=== PATIENT | male | born 1985 | race Caucasian/White ===

== ENCOUNTER 2017-02-02 15:10 | Emergency (ER) | payer MEDICAID ==
[2017-02-02 15:22] VITALS: BP 114/78; PULSE 100; RESP 16; TEMP 98.4; O2SAT 92
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
== END 2017-02-02 15:53 | disposition home or self-care (01) ==
LOC: EDUNIT#
DX: S46.911A Strain of unspecified muscle, fascia and tendon at shoulder and upper arm level, right arm, initial encounter (principal); F17.200 Nicotine dependence, unspecified, uncomplicated; Y04.0XXA Assault by unarmed brawl or fight, initial encounter; Y92.512 Supermarket, store or market as the place of occurrence of the external cause; Y99.8 Other external cause status; Y93.89 Activity, other specified

== ENCOUNTER 2017-09-12 20:41 | Emergency (ER) | payer MEDICAID ==
[2017-09-12] MEDS ORDERED: ONDANSETRON 4 MG/2 ML VIAL IVP ONE (20:58)
[2017-09-12] MEDS ORDERED: NS 1,000 ML IV ONE ×2 (20:58)
[2017-09-12] MEDS ORDERED: LORazepam 2 MG/ML INJ IVP ONE (20:58)
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
[2017-09-12] MEDS ORDERED: CHLORDIAZEPOXIDE 25MG PREPK#6 BTL TAKEHOME ONE (21:39)
[2017-09-12] MEDS ORDERED: ONDANSETRON 4MG PREPACK#2 BTL TAKEHOME ONE (21:39)
[2017-09-12 22:58] VITALS: BP 129/78
== END 2017-09-12 22:58 | disposition home or self-care (01) ==
DX: F15.20 Other stimulant dependence, uncomplicated (principal); F11.23 Opioid dependence with withdrawal; F17.200 Nicotine dependence, unspecified, uncomplicated
CPT/HCPCS: 96374; J2060; J2405

== ENCOUNTER 2017-09-14 00:02 | Emergency (ER) | payer MEDICAID ==
--- NOTE | 2017-09-14 00:18 | EDPHY ---
H & P Smoking Status: Heavy smoker Time Seen by Provider: 09/14/17 00:10 HPI/ROS: CHIEF COMPLAINT: "I can't sleep" HISTORY OF PRESENT ILLNESS: 32-year-old male self [facility] complaining of withdrawal symptoms from methamphetamine and heroin. He was seen the ER 2 days ago for similar complaints after herself checking in to the [facility]. He states that he was agitating the other residents this evening because he could not sleep and is irritable. He is currently complaining of nausea, anxiety, irritation. Denies suicidal or homicidal ideation. Denies chest pain. Denies dyspnea. Denies back pain. Denies hallucination. Denies seizure. REVIEW OF SYSTEMS: A ten point review of systems was performed and is negative with the exception of the items mentioned in the HPI PAST MEDICAL & SURGICAL HISTORY: No pertinent medical or surgical history SOCIAL HISTORY: History of tobacco abuse. History of methamphetamine and heroin abuse, last used 4 days ago. No history of alcohol abuse PHYSICAL EXAM (Prior to examination, patient consented to physical exam, hands were washed and my usual and customary physical exam procedures followed) 1) GENERAL: Well-developed, well-nourished, alert and oriented. Appears anxious. 2) HEAD: Normocephalic, atraumatic 3) HEENT: Pupils equal, round, reactive to light bilaterally. Sclera anicteric. Nasopharynx, oropharynx, clear, no lesions. No signs of trauma Ears bilaterally with normal tympanic membranes. 4) NECK: Full range of motion, no meningeal signs. 5) LUNGS: Clear auscultation bilaterally, no wheezes, no rhonchi, no retractions. 6) HEART: Regular rate and rhythm, no murmur, no heave, no gallop. 7) ABDOMEN: No guarding, no rebound, no focal tenderness, negative McBurney's, negative Lopez's, negative Rovsing's, negative peritoneal sign, 8) MUSCULOSKELETAL: Moving all extremities, no focal areas of tenderness, no obvious trauma. No peripheral edema or discoloration. 9) BACK: No CVA tenderness, no midline vertebral tenderness, no fluctuance, no step-off, no obvious trauma, no visual or palpable abnormality. 10) SKIN: No rash, no petechiae. 11) Psychiatric: Patient is oriented X 3, there is no agitation. 12) NEURO: Awake, alert, and oriented to person, place and time. Answers questions appropriately. There were no obvious focal neurologic abnormalities. No cerebellar dysfunction. Cranial nerves 2 through to 12 intact. Normal steady gait. Upper and lower extremities bilaterally with strength 5 / 5, reflexes 2+. DIFFERENTIAL DIAGNOSIS: In no particular order including but limited to opiate withdrawal, depression, suicidal ideation (Ermias,Jam Breanne) Constitutional: Initial Vital Signs Temperature (C) 37.2 C 09/14/17 00:05 Heart Rate 77 09/14/17 00:05 Respiratory Rate 16 09/14/17 00:05 Blood Pressure 159/92 H 09/14/17 00:05 O2 Sat (%) 95 09/14/17 00:05 O2 Delivery Mode Room Air Allergies/Adverse Reactions: No Known Allergies Allergy (Unverified 10/10/09 16:15) Home Medications: Medication Instructions Recorded oxyCODONE/APAP 5/325 [Percocet 1 - 2 tab PO Q4-6PRN PRN #11 tab 03/09/15 5/325] Methadone HCl 02/02/17 MDM/Departure - MDM Medications Given: Discontinued Medications Chlordiazepoxide (Librium 25 Mg Prepack#6) 1 btl TAKEHOME EDNOW ONE Stop: 09/14/17 02:15 Last Admin: 09/14/17 02:19 Dose: 1 btl Clonidine (Catapres) 0.1 mg PO EDNOW ONE Stop: 09/14/17 00:37 Last Admin: 09/14/17 00:49 Dose: 0.1 mg Sodium Chloride (Ns) 2,000 mls @ 0 mls/hr IV ONCE ONE PRN Reason: Wide Open Stop: 09/14/17 00:23 Last Admin: 09/14/17 00:27 Dose: 2,000 mls Lorazepam (Ativan Injection) 1 mg IVP EDNOW ONE Stop: 09/14/17 00:23 Last Admin: 09/14/17 00:28 Dose: 1 mg Lorazepam (Ativan Injection) 1 mg IVP EDNOW ONE Stop: 09/14/17 00:47 Last Admin: 09/14/17 00:49 Dose: 1 mg Ondansetron HCl (Zofran) 4 mg IVP EDNOW ONE Stop: 09/14/17 00:23 Last Admin: 09/14/17 00:28 Dose: 4 mg Ondansetron HCl (Zofran) 4 mg IVP EDNOW ONE Stop: 09/14/17 00:47 Last Admin: 09/14/17 00:49 Dose: 4 mg Ondansetron HCl (Zofran Odt 4 Mg Prepack#2) 1 btl TAKEHOME EDNOW ONE Stop: 09/14/17 02:15 Last Admin: 09/14/17 02:19 Dose: 1 btl ED Course/Re-evaluation: 12:35 a.m.: I have reviewed this patient's old medical records including emergency department visit from 2 days ago. Will administer IV hydration, administer benzodiazepine, antiemetic and clonidine and re-evaluated. He denies suicidal or homicidal ideation. I do not think he meets criteria for an M1 hold at this time. Care of patient under supervision of secondary supervising physician Dr Ballesteros . 12:46 a.m.: Patient received 1st round of Zofran Ativan and at this time is vomiting and retching. 1:20 a.m.: Re-evaluation, sleeping. Will attempt oral hydration challenge. 1:40 a.m.: Re-evaluation, sleeping, has tolerated oral fluid. He request with again stained the ER for a while longer. I think he can be sent back to the [facility]. (Jam Monson) PHYSICIAN DOCUMENTATION: The patient was evaluated and managed by the Physician Fitness Studies Teacher. My co- signature indicates that I have reviewed this chart and I agree with the findings and plan of care as documented. I am the secondary supervising physician. (Dilcia Ballesteros) - Depart Disposition: Home, Routine, Self-Care Clinical Impression: Opiate withdrawal Condition: Good Instructions: Chlordiazepoxide/Clidinium (By mouth), Ondansetron (By mouth), Opioid Withdrawal (ED) Referrals: [facility] 24 Hours [Outside] - As per Instructions
[2017-09-14] MEDS ORDERED: ONDANSETRON 4 MG/2 ML VIAL IVP ONE ×2 (00:22→00:46)
[2017-09-14] MEDS ORDERED: LORazepam 2 MG/ML INJ IVP ONE ×2 (00:22→00:46)
[2017-09-14] MEDS ORDERED: NS 2,000 ML IV ONE (00:22)
[2017-09-14] MEDS ORDERED: ONDANSETRON 4 MG/2 ML VIAL ONE (00:46)
[2017-09-14] MEDS ORDERED: LORazepam 2 MG/ML INJ ONE (00:47)
[2017-09-14 01:59] VITALS: BP 149/91
[2017-09-14] MEDS ORDERED: ONDANSETRON 4MG PREPACK#2 BTL TAKEHOME ONE (02:14)
[2017-09-14] MEDS ORDERED: CHLORDIAZEPOXIDE 25MG PREPK#6 BTL TAKEHOME ONE (02:14)
== END 2017-09-14 02:42 | disposition home or self-care (01) ==
DX: F11.23 Opioid dependence with withdrawal (principal); F17.200 Nicotine dependence, unspecified, uncomplicated
CPT/HCPCS: 96374; J2060; J2405

== ENCOUNTER 2017-09-16 04:58 | Emergency (ER) | payer MEDICAID ==
[2017-09-16] MEDS ORDERED: NS 1,000 ML IV ONE (05:02)
[2017-09-16] MEDS ORDERED: PROMETHAZINE HCL 25 MG/ML INJ IVP ONE ×2 (05:02→06:15)
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
[2017-09-16 05:12] LABS: PLATELET COUNT 239 10^3/uL (150-400)
[2017-09-16] MEDS ORDERED: FAMOTIDINE 20 MG/NACL 50 ML IV ONE (05:12)
[2017-09-16] MEDS ORDERED: ONDANSETRON 4 MG/2 ML VIAL IVP ONE ×2 (06:15→07:07)
[2017-09-16] MEDS ORDERED: LORazepam 2 MG/ML INJ IVP ONE (06:15)
[2017-09-16] MEDS ORDERED: IOPAMIDOL (ISOVUE-300) 100 ML BTL ONE (07:30)
[2017-09-16 08:39] VITALS: BP 127/78
[2017-09-16] MEDS ORDERED: ONDANSETRON 4MG PREPACK#2 BTL TAKEHOME ONE ×2 (08:40→08:42)
== END 2017-09-16 08:44 | disposition home or self-care (01) ==
LOC: EDUNIT#
DX: R11.2 Nausea with vomiting, unspecified (principal); R10.84 Generalized abdominal pain; E86.9 Volume depletion, unspecified; F17.200 Nicotine dependence, unspecified, uncomplicated
CPT/HCPCS: 96374; J2060; J2405; J2550; Q9967

== ENCOUNTER 2017-11-24 06:44 | Emergency (ER) | payer MEDICAID ==
[2017-11-24] MEDS ORDERED: ONDANSETRON DISINTEGRATING 4 MG TAB PO ONE (07:05)
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
[2017-11-24 07:36] VITALS: BP 135/78
== END 2017-11-24 07:36 | disposition home or self-care (01) ==
DX: R11.2 Nausea with vomiting, unspecified (principal); R19.7 Diarrhea, unspecified; F17.200 Nicotine dependence, unspecified, uncomplicated

== ENCOUNTER 2018-01-12 13:14 | Emergency (ER) | payer MEDICAID ==
[2018-01-12] MEDS ORDERED: ONDANSETRON 4 MG/2 ML VIAL IVP ONE (16:25)
[2018-01-12] MEDS ORDERED: NS 1,000 ML IV ONE (16:25)
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
[2018-01-12 17:34] VITALS: BP 132/89
== END 2018-01-12 17:56 | disposition home or self-care (01) ==
DX: R11.10 Vomiting, unspecified (principal); E86.9 Volume depletion, unspecified; F17.200 Nicotine dependence, unspecified, uncomplicated
CPT/HCPCS: 96374; J2405